=== PATIENT | male | born 1950 | race Caucasian/White ===

== ENCOUNTER 2019-07-07 10:39 | Outpatient (CLI) | payer MEDICARE, OTHER, SELFPAY ==
[2019-07-07 11:39] LABS: Basophils # 0.1 10^3/uL (0.0-0.1); Basophils % 1.1 %; Eosinophils # 0.1 10^3/uL (0.0-0.8); Eosinophils % 1.3 %; Hematocrit 42.5 % (42.0-52.0); Lymphocytes % 18.2 %; Mean Corpuscular HGB Conc 32.9 g/dL (30.0-36.0); Mean Corpuscular Hemoglobin 30.1 pg (28.0-34.0); Mean Corpuscular Volume 91.4 fL (80-94); Mean Platelet Volume 10.9 fL (7.4-10.4); Monocytes # 0.5 10^3/uL (0.2-0.9); Monocytes % 10.1 %; Neutrophils # 3.7 10^3/uL (1.8-7.7); Neutrophils % 68.9 %; Nucleated Red Blood Cells % 0 %; Platelet Count 206 10^3/cmm (130-400); Red Blood Count 4.65 10^6/uL (4.1-5.3); Red Cell Distribution Width 13.3 % (12.1-15.1); White Blood Count 5.3 10^3/uL (4.0-10.0)
[2019-07-07 12:01] LABS: Alanine Aminotransferase 19 U/L (0-41); Albumin Level 4.4 g/dL (3.5-5.2); Alkaline Phosphatase 74 IU/L (40-130); Anion Gap 12.8 (5-19); Aspartate Amino Transferase 22 U/L (0-40); Blood Urea Nitrogen 15 mg/dL (8-23); Calcium 9.9 mg/dL (8.5-10.5); Carbon Dioxide 30 mmol/L (22-29); Chloride 101 mmol/L (98-107); Globulin 2.6 g/dL (1.3-4.6); Glucose 127 mg/dL (74-106); Potassium 3.8 mmol/L (3.5-5.1); Sodium 140 mmol/L (136-145); Total Bilirubin 0.3 mg/dL (0.15-1.2)
--- NOTE | 2019-07-07 21:33 | ONC FU_ITS ---
Dr. Valdez Patient Follow-Up Note Patient: Navi Cabral Unit #: [id number]: 1950 Dicatated By: Juancarlos Valdez M.D.Date of Visit:Jul 07, 2019 Onc Med Follow-up/Prog Note Chief Complaint: Breast cancer. History of Present Illness: This is a 69 year-old man with grade 2 infiltrating ductal carcinoma of the left breast, stage IIB (pT2, pN1a, M0), ER/WI positive and HER-2/teo nonamplified. He had presented with a one-month history of palpable left breast nodule. His mammogram on 11/04/2014 revealed a 2 cm lobulated mass posterior to the nipple with nipple retraction, corresponding to 1.8 cm mass on ultrasound, suspicious for nipple involvement. The examination revealed two small left axillary lymph nodes. On 11/12/2014 ultrasound guided biopsy of the left breast mass and axillary lymph node were involved with invasive moderately differentiated ductal carcinoma, grade 2/3. Prognostic profile showed ER 95%, WI 95%, and HER-2/teo nonamplified with FISH ratio 1.2, 3.7 HER-2 copies/cell. IHC not reported. He was first seen by Dr. Prince on 11/16/2014. Staging CT of the chest, abdomen, and pelvis was negative for definitive metastatic disease. On 11/19/2014 he underwent a left simple mastectomy and axillary lymph node dissection by Dr. Salvador. The surgical pathology showed 2.5 cm infiltrating ductal carcinoma extending to the skin, involving dermis and epidermis, with lymphovascular invasion, grade 2, without DCIS. Margins were negative. There was metastatic involvement in 1/16 lymph nodes. Thus, his disease was stage IIB (pT2, pN1a, M0). Dose dense Adriamycin/cyclophosphamide for 4 cycles was delivered 12/22/2014 - 02/02/2015. His treatment was complicated with neutropenia without infection. He then received 4 cycles of paclitaxel 02/24/2015 ??? 04/20/2015. He was then given prophylactic chest wall radiation, completed on 07/06/2015 to a total dose of 6040 cGy. He began on adjuvant tamoxifen therapy on 06/11/2014. His medical history is otherwise significant for GERD. He is a nonsmoker. INTERIM HISTORY: He was seen for a scheduled followup visit on 07/01/2018. At that point he was doing well clinically with no evidence of recurrence of the breast cancer. He continued his adjuvant hormonal therapy with tamoxifen 20 mg daily. He is seen today for an unplanned visit. We had received a call this morning indicating that he had found a new lump in the left chest area. He had only recently become aware of it. He has been feeling good generally. He had the weight loss on the [employer]ystem diet, which he has been able to maintain. He has normal energy and activity tolerance. He has no fever, night sweats, or hot flashes. He has no shortness of breath, cough, or chest pain. He has no GI or complaints other than nocturia, which is stable. He has no significant joint or bone pain. He still has a little residual neuropathy in his toes. Medications: Aspirin 1 (81 mg) Tablet Oral daily, Multivitamins 1 Tablet Capsule Oral daily, Tamoxifen Citrate 1 (20 mg) Tablet Oral daily Allergies: No Known Allergies. Review of Systems: Constitutional - His energy is good and he has normal activity. His appetite is good, but he has had significant weight loss on a Nutrasystem diet. No fever, chills, hot flashes, or night sweats. ECOG score is 0, ENMT - No sinus congestion/drainage. No mouth sores. No sore throat or difficulty swallowing, Hematologic/Lymphatic - He bruises easily, Breasts - He has become aware of a new lump in his left chest wall, Respiratory - No shortness of breath. No cough. No pleuritic pain or hemoptysis, Cardiovascular - No angina pain. No palpitations, Gastrointestinal - No nausea or vomiting. No heartburn or acid reflux. No diarrhea or constipation. No blood in the stool or black stools, Genitourinary (M) - No dysuria or hematuria. He has nocturia 3-4 times. No urgency or incontinence, Musculoskeletal - No joint or bone pain, Integumentary - No skin complications, Neurologic - No headache or dizziness. He has a little residual neuropathy in his toes, Psychiatric - No anxiety or depression. No insomnia. Vital Signs: Performed on Jul 07, 2019 10:52 Height - 72.00 in Weight - 197.2 lbs (LOW) BSA - 2.12 sq.m BMI - 26.75 Temperature - 97.2 F (LOW) Pulse - 80 /min Respiration - 158 /min (HIGH) BP - 139/92 mm(hg) O2 Sat - 96 % Pain - 0 Physical Examination: Constitutional - He looks good generally, Eyes - Sclerae nonicteric. Conjunctivae clear, ENMT - No lesions noted in the oral cavity, Hematologic/Lymphatic - No cervical or clavicular adenopathy, Respiratory - Lungs are clear with good air movement bilaterally, Cardiovascular - Heart rhythm is regular. There is no murmur, gallop, or rub noted, Breasts - There is some nodularity in the upper outer quadrant of the right breast. There is no suspicious mass noted. There is a subcutaneous nodule in the upper outer left chest wall. It has ill-defined borders, but it appears to measure about 1 cm. There is no axillary adenopathy noted, Abdomen - Soft. Liver and spleen are not enlarged. There is no abdominal mass or ascites noted and there is no inguinal adenopathy, Extremities - No edema, Neurologic - No focal neurologic deficits noted. Lab/Imaging: Test performed on Jul 07, 2019 11:10 Sodium 140 mmol/L Potassium 3.8 mmol/L Chloride 101 mmol/L CO2 30 mmol/L Anion Gap 12.8 BUN 15 mg/dL Creatinine 1.2 mg/dL Cr Clearance (Est) 73.0300 mL/min Glucose 127 mg/dL Calcium 9.9 mg/dL Protein, Total 7.0 g/dL Albumin 4.4 g/dL Globulin 2.6 g/dL Bilirubin, Total 0.3 mg/dL ALT (SGPT) 19 U/L AST (SGOT) 22 U/L Alkaline Phosphatase 74 IU/L WBC 5.3 10 3/uL RBC 4.65 10 6/uL HGB 14.0 g/dL HCT 42.5 % MCV 91.4 fL MCH 30.1 pg MCHC 32.9 g/dL RDW 13.3 % Platelet Count 206 10 3/cmm MPV 10.9 fL Neutrophils 3.7 10 3/uL Lymphocytes 1.0 10 3/uL Monocytes 0.5 10 3/uL Eosinophils 0.1 10 3/uL Basophils 0.1 10 3/uL Neutrophil % 68.9 % Lymphocyte % 18.2 % Monocyte % 10.1 % Eosinophil % 1.3 % Basophils % 1.1 % Impression: 1. Patient with grade 2 infiltrating ductal carcinoma of the left breast, stage IIB (pT2, pN1a, M0), ER/WI positive and HER-2/teo nonamplified. 2. He underwent left simple mastectomy and axillary node dissection on 11/19/2014. 3. He was given adjuvant chemotherapy with 4 cycles of dose dense Adriamycin/cyclophosphamide followed by 4 cycles of paclitaxel, completed on 04/20/2015. 4. He was then given prophylactic chest wall radiation, completed on 07/06/2015 to a total dose of 6040 cGy. 5. Adjuvant hormonal therapy with tamoxifen began in June 2014. The recommended duration of treatment was 10 years. As of his follow-up visit on 03/31/2019 he appear to be doing well clinically with no evidence of recurrence of the breast cancer. He comes in now with a recently discovered subcutaneous nodule in the upper outer left chest wall. The appearance is highly suspicious for recurrence of his breast cancer. Plan: He will contact Dr. Ac to arrange for excisional biopsy of the chest wall lesion. If this is confirmed to be malignant, he will need to be scheduled for restaging PET/CT. I also will want to have his tumor evaluated with a next generation sequencing study prior to recommending any further treatment. Signed By: Juancarlos Valdez M.D. <<Signature on File>>
== END 2019-07-07 10:40 | disposition home or self-care (01) ==
LOC: ONCMED 10:42
PROVIDERS: Family Provider Internal Medicine; PCP Internal Medicine; Visit Provider Internal Medicine Medical Oncology
DX: C50.022 Malignant neoplasm of nipple and areola, left male breast (principal); C77.3 Secondary and unspecified malignant neoplasm of axilla and upper limb lymph nodes; K21.9 Gastro-esophageal reflux disease without esophagitis; G62.9 Polyneuropathy, unspecified; L98.9 Disorder of the skin and subcutaneous tissue, unspecified; Z17.0 Estrogen receptor positive status [ER+]; Z79.82 Long term (current) use of aspirin; Z79.810 Long term (current) use of selective estrogen receptor modulators (SERMs); Z92.3 Personal history of irradiation; Z92.21 Personal history of antineoplastic chemotherapy; Z90.12 Acquired absence of left breast and nipple
CPT/HCPCS: 36415; 80053; 85025; 99214

== ENCOUNTER 2020-03-31 07:47 | Outpatient (CLI) | payer MEDICARE, OTHER, SELFPAY ==
--- NOTE | 2020-03-31 08:09 | MM_ITS ---
WS: [id number] DIAGNOSTIC RIGHT DIGITAL MAMMOGRAM WITH CAD HISTORY: HX OF BREAST CA COMPARISON: 03/26/2019 and 03/25/2018 Technique: CC, MLO and ML views. Breast composition: The breasts are almost entirely fatty. No suspicious masses or distortion. Simila r pattern throughout the RIGHT breast tissue. MM/[place] [id number] IMPRESSION: BI-RADS: 1-Negative FOLLOW UP: 1 Year Follow-up
[2020-03-31 08:56] LABS: Basophils # 0.1 10^3/uL (0.0-0.1); Basophils % 1.2 %; Eosinophils # 0.1 10^3/uL (0.0-0.8); Eosinophils % 2.4 %; Hematocrit 43.2 % (42.0-52.0); Hemoglobin 14.1 g/dL (11.7-16.6); Lymphocytes # 0.9 10^3/uL (0.8-4.8); Lymphocytes % 22.7 %; Mean Corpuscular HGB Conc 32.6 g/dL (30.0-36.0); Mean Corpuscular Hemoglobin 30.8 pg (28.0-34.0); Mean Corpuscular Volume 94.3 fL (80-94); Mean Platelet Volume 10.4 fL (7.4-10.4); Monocytes # 0.5 10^3/uL (0.2-0.9); Neutrophils % 60.5 %; Nucleated Red Blood Cells % 0 %; Platelet Count 189 10^3/cmm (130-400); Red Blood Count 4.58 10^6/uL (4.1-5.3); Red Cell Distribution Width 13.2 % (12.1-15.1); White Blood Count 4.1 10^3/uL (4.0-10.0)
[2020-03-31 09:15] LABS: Alanine Aminotransferase 18 U/L (0-41); Albumin Level 4.2 g/dL (3.5-5.2); Alkaline Phosphatase 66 IU/L (40-130); Anion Gap 11.5 (5-19); Aspartate Amino Transferase 21 U/L (0-40); Blood Urea Nitrogen 16 mg/dL (8-23); Calcium 9.1 mg/dL (8.5-10.5); Carbon Dioxide 28 mmol/L (22-29); Chloride 105 mmol/L (98-107); Globulin 2.3 g/dL (1.3-4.6); Glucose 101 mg/dL (65-115); Osmolality Calculated 291 mOsm/kg (285-295); Potassium 4.5 mmol/L (3.5-5.1); Sodium 140 mmol/L (136-145); Total Bilirubin 0.4 mg/dL (0.15-1.2); Total Protein 6.5 g/dL (6.6-8.7)
== END 2020-03-31 07:48 | disposition home or self-care (01) ==
LOC: RADSHAW 07:51 → ONCMED 08:38
PROVIDERS: PCP Internal Medicine; Visit Provider Internal Medicine Medical Oncology
DX: Z85.3 Personal history of malignant neoplasm of breast (principal); E65 Localized adiposity
CPT/HCPCS: 36415; 77065; 80053; 85025

== ENCOUNTER 2020-04-28 06:14 | Outpatient (CLI) | payer MEDICARE, OTHER, SELFPAY ==
--- NOTE | 2020-05-02 10:39 | ONC FU_ITS ---
Dr. Valdez Patient Follow-Up Note Patient: Navi Cabral Unit #: [id number]: 1950 Dicatated By: Juancarlos Valdez M.D.Date of Visit:Apr 28, 2020 Onc Med Follow-up/Prog Note Chief Complaint: Breast cancer. History of Present Illness: This is a 70 year-old man with grade 2 infiltrating ductal carcinoma of the left breast, stage IIB (pT2, pN1a, M0), ER/HI positive and HER-2/teo nonamplified. He had presented with a one-month history of palpable left breast nodule. His mammogram on 11/04/2014 revealed a 2 cm lobulated mass posterior to the nipple with nipple retraction, corresponding to 1.8 cm mass on ultrasound, suspicious for nipple involvement. The examination revealed two small left axillary lymph nodes. On 11/12/2014 ultrasound guided biopsy of the left breast mass and axillary lymph node were involved with invasive moderately differentiated ductal carcinoma, grade 2/3. Prognostic profile showed ER 95%, [place] 95%, and HER-2/teo nonamplified with FISH ratio 1.2, 3.7 HER-2 copies/cell. IHC not reported. He was first seen by Dr. Prince on 11/16/2014. Staging CT of the chest, abdomen, and pelvis was negative for definitive metastatic disease. On 11/19/2014 he underwent a left simple mastectomy and axillary lymph node dissection by Dr. Salvador. The surgical pathology showed 2.5 cm infiltrating ductal carcinoma extending to the skin, involving dermis and epidermis, with lymphovascular invasion, grade 2, without DCIS. Margins were negative. There was metastatic involvement in 1/16 lymph nodes. Thus, his disease was stage IIB (pT2, pN1a, M0). Dose dense Adriamycin/cyclophosphamide for 4 cycles was delivered 12/22/2014 - 02/02/2015. His treatment was complicated with neutropenia without infection. He then received 4 cycles of paclitaxel 02/24/2015 ??? 04/20/2015. He was then given prophylactic chest wall radiation, completed on 07/06/2015 to a total dose of 6040 cGy. He began on adjuvant tamoxifen therapy on 06/11/2014. His medical history is otherwise significant for GERD. He is a nonsmoker. INTERIM HISTORY: At his follow-up visit in June 2019 he had developed a new subcutaneous nodule in the upper outer left chest wall. Clinically was very suspicious for recurrence. The lesion subsequently was excised by Dr. Ac, and it was determined to be benign and apparently related to his radiation. He continued his adjuvant tamoxifen. He is seen for a scheduled visit. He has been feeling good generally. He has good energy and activity tolerance. His ECOG score is 0. Appetite also is good. He has had some intentional weight loss. He does not have fever, night sweats, or hot flashes. He does complain that he has been getting fairly frequent muscle cramps in his legs and hands. He has occasional pain in the low back and hips with activity. He has no other joint or bone pain and he really has no other significant complaints at this time. Medications: Aspirin 1 (81 mg) Tablet Oral daily, Multivitamins 1 Tablet Capsule Oral daily, Tamoxifen Citrate 1 (20 mg) Tablet Oral daily Allergies: No Known Allergies. Review of Systems: Constitutional - He has good energy and activity tolerance. Appetite is also good. He has had intentional weight loss. He does not have fever, night sweats, or hot flashes. ECOG score 0, ENMT - No sinus congestion/drainage. No mouth sores. No sore throat or difficulty swallowing, Hematologic/Lymphatic - No abnormal bruising or bleeding, Respiratory - No shortness of breath. No cough. No pleuritic pain or hemoptysis, Cardiovascular - No angina pain. No palpitations, Gastrointestinal - No nausea or vomiting. No heartburn or acid reflux. No diarrhea or constipation. No blood in the stool or black stools, Genitourinary (M) - No dysuria or hematuria. No urinary frequency. He does have some nocturia. No urgency or incontinence, Musculoskeletal - He has occasional pain in the low back and hips with activity. He has no other joint or bone pain. He has been getting muscle cramps in his legs and hands, Integumentary - No skin rash, Neurologic - No headache or dizziness. No numbness or tingling. No other focal neurologic symptoms, Psychiatric - No anxiety or depression. No insomnia. Vital Signs: Performed on Apr 28, 2020 10:27 Height - 72.00 in Weight - 203.4 lbs (HIGH) BSA - 2.15 sq.m BMI - 27.59 Temperature - 97.9 F (LOW) Pulse - 62 /min Respiration - 18 /min BP - 159/95 mm(hg) (HIGH) O2 Sat - 97 % Pain - 0 Physical Examination: Constitutional - He looks good generally, Eyes - Sclerae nonicteric. Conjunctivae clear, ENMT - No lesions noted in the oral cavity, Hematologic/Lymphatic - No cervical or clavicular adenopathy, Respiratory - Lungs are clear with good air movement bilaterally, Cardiovascular - Heart rhythm is regular. There is no murmur, gallop, or rub noted, Breasts - The right para shows a mass. There are no lesions noted in the left chest wall. There is no axillary adenopathy noted, Abdomen - Soft. Liver and spleen are not enlarged. There is no abdominal mass or ascites noted and there is no inguinal adenopathy, Extremities - No edema, Neurologic - No focal neurologic deficits noted. Lab/Imaging: Test performed on Mar 31, 2020 08:45 Sodium 140 mmol/L Potassium 4.5 mmol/L Chloride 105 mmol/L CO2 28 mmol/L Anion Gap 11.5 BUN 16 mg/dL Creatinine 1.0 mg/dL Cr Clearance (Est) 86.3700 mL/min Glucose 101 mg/dL Osmolality - Calculated 291 mOsm/kg Calcium 9.1 mg/dL Protein, Total 6.5 g/dL Albumin 4.2 g/dL Globulin 2.3 g/dL Bilirubin, Total 0.4 mg/dL ALT (SGPT) 18 U/L AST (SGOT) 21 U/L Alkaline Phosphatase 66 IU/L WBC 4.1 10 3/uL RBC 4.58 10 6/uL HGB 14.1 g/dL HCT 43.2 % MCV 94.3 fL MCH 30.8 pg MCHC 32.6 g/dL RDW 13.2 % Platelet Count 189 10 3/cmm MPV 10.4 fL Neutrophils 2.50 10 3/uL Lymphocytes 0.9 10 3/uL Monocytes 0.5 10 3/uL Eosinophils 0.1 10 3/uL Basophils 0.1 10 3/uL Neutrophil % 60.5 % Lymphocyte % 22.7 % Monocyte % 13.0 % Eosinophil % 2.4 % Basophils % 1.2 % NRBC % 0 % Impression: 1. Patient with grade 2 infiltrating ductal carcinoma of the left breast, stage IIB (pT2, pN1a, M0), ER/HI positive and HER-2/teo nonamplified. 2. He underwent left simple mastectomy and axillary node dissection on 11/19/2014. 3. He was given adjuvant chemotherapy with 4 cycles of dose dense Adriamycin/cyclophosphamide followed by 4 cycles of paclitaxel, completed on 04/20/2015. 4. He was then given prophylactic chest wall radiation, completed on 07/06/2015 to a total dose of 6040 cGy. 5. Adjuvant hormonal therapy with tamoxifen began in June 2014. The recommended duration of treatment was 10 years. In June 2019 he presented with a new subcutaneous nodule in the upper outer left chest wall. The appearance was highly suspicious for recurrence of his breast cancer. He was referred to Dr. Ac for excision and the lesion did display designer outside to be benign, and apparently radiation-related. He has since then continued his adjuvant tamoxifen, which he tolerates with acceptable toxicity. Thus far there has been no evidence of recurrence of the breast cancer. Plan: He continues adjuvant hormonal therapy with tamoxifen 20 mg daily. I will see him again in 1 year. Signed By: Juancarlos Valdez M.D. <<Signature on File>>
== END 2020-04-28 06:15 | disposition home or self-care (01) ==
LOC: ONCMED 06:16
PROVIDERS: PCP Internal Medicine; Visit Provider Internal Medicine Medical Oncology
DX: C50.022 Malignant neoplasm of nipple and areola, left male breast (principal); Z17.0 Estrogen receptor positive status [ER+]; Z90.12 Acquired absence of left breast and nipple; Z92.21 Personal history of antineoplastic chemotherapy; Z92.3 Personal history of irradiation; Z79.810 Long term (current) use of selective estrogen receptor modulators (SERMs)
CPT/HCPCS: 99214

== ENCOUNTER 2020-11-12 14:10 | Outpatient (CLI) | payer MEDICARE, OTHER, SELFPAY ==
--- NOTE | 2020-11-12 14:44 | MR_ITS ---
WS: [id number] MRI LEFT SHOULDER HISTORY: INTERNAL DERANGEMENT COMPARISON: 11/04/2020 TECHNIQUE: Multiplanar sequences of the shoulder joint are submitted. Moderate degenerative changes at the AC joint. Soft tissue and hypertrophic bone formation. Osteophyt e from the distal clavicle extends 4 mm towards the supraspinatus muscle. There is mild encroachment upon the supraspinatus muscle. Increased T2 signal along the AC ligament. There is an additional oste ophyte measuring 7 x 3 mm along the inferior undersurface of the acromion causing mild encroachment u bonifacio the supraspinatus tendon. No os acromion. Biceps tendon in normal position. Calcific deposits within the distal rotator cuff are identified. The largest deposit extends over a w idth of 8 mm between the supraspinatus and subscapularis tendons. No definite rotator cuff tear is id entified. There is some very mild increased signal in the distal supraspinatus from tendinopathy. Sma ll amount of fluid in the subacromial and subdeltoid bursa. There is a small amount of marrow edema i nvolving the greater tuberosity. No labral abnormality. Cortical irregularity involving the posterior inferior glenoid. MR/MR shoulder LT wo con* [id number] IMPRESSION: 1. 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 2. Osteophyte along the inferior distal surface of the acromion measures 7.3 m m encroaching upon the supraspinatus tendon. 3. Calcific tendinitis. Largest calcific deposit between the distal supraspina tus and subscapularis tendons measures 8 mm. 4. Cortical irregularity and loss of cartilage involving the posterior inferio r glenoid.
== END 2020-11-12 14:11 | disposition home or self-care (01) ==
LOC: RADWPI 14:22
PROVIDERS: PCP Internal Medicine; Visit Provider Physician Assistant
DX: M24.9 Joint derangement, unspecified (principal); M13.812 Other specified arthritis, left shoulder; M25.712 Osteophyte, left shoulder; M65.28 Calcific tendinitis, other site
CPT/HCPCS: 73221

== ENCOUNTER 2021-04-12 13:58 | Outpatient (CLI) | payer MEDICARE, OTHER, SELFPAY ==
--- NOTE | 2021-04-12 14:05 | MM_ITS ---
WS: [id number] RIGHT DIGITAL MAMMOGRAPHY WITH CAD CLINICAL INFORMATION: HX OF BREAST CA COMPARISON: March 31, 2020 TECHNIQUE: 3 views of the right breast were obtained. FINDINGS: Scattered fibroglandular densities of the right breast. No suspicious focal mass, asymmetry, calcifications, or architectural distortion. No evidence of katya gnancy. MM/[place] [id number] IMPRESSION: BI-RADS: 1-Negative FOLLOW UP: 1 Year Follow-up Recommend return to annual diagnostic mammography.
== END 2021-04-12 13:59 | disposition home or self-care (01) ==
LOC: RADSHAW 14:00
PROVIDERS: PCP Internal Medicine; Visit Provider Internal Medicine Medical Oncology
DX: Z85.3 Personal history of malignant neoplasm of breast (principal)
CPT/HCPCS: 77065

== ENCOUNTER 2021-04-27 10:49 | Outpatient (CLI) | payer MEDICARE, OTHER, SELFPAY ==
[2021-04-27 11:33] LABS: Basophils # 0.1 10^3/uL (0.0-0.1); Basophils % 1.2 %; Eosinophils # 0.2 10^3/uL (0.0-0.8); Hematocrit 40.7 % (42.0-52.0); Hemoglobin 13.5 g/dL (11.7-16.6); Lymphocytes # 1.4 10^3/uL (0.8-4.8); Lymphocytes % 24.7 %; Mean Corpuscular HGB Conc 33.2 g/dL (30.0-36.0); Mean Corpuscular Hemoglobin 31.2 pg (28.0-34.0); Mean Platelet Volume 10.9 fL (7.4-10.4); Monocytes # 0.7 10^3/uL (0.2-0.9); Monocytes % 12.5 %; Neutrophils # 3.35 10^3/uL (1.8-7.7); Neutrophils % 58.3 %; Nucleated Red Blood Cells % 0 %; Platelet Count 198 10^3/cmm (130-400); Red Blood Count 4.33 10^6/uL (4.1-5.3); Red Cell Distribution Width 13.1 % (12.1-15.1); White Blood Count 5.8 10^3/uL (4.0-10.0)
[2021-04-27 11:49] LABS: Alanine Aminotransferase 20 U/L (0-41); Alkaline Phosphatase 67 IU/L (40-130); Aspartate Amino Transferase 24 U/L (0-40); Blood Urea Nitrogen 17 mg/dL (8-23); Calcium 8.5 mg/dL (8.5-10.5); Carbon Dioxide 27 mmol/L (22-29); Chloride 101 mmol/L (98-107); Globulin 2.5 g/dL (1.3-4.6); Glucose 94 mg/dL (65-115); Osmolality Calculated 285 mOsm/kg (285-295); Sodium 137 mmol/L (136-145); Total Bilirubin 0.3 mg/dL (0.15-1.2); Total Protein 6.5 g/dL (6.6-8.7)
--- NOTE | 2021-04-30 14:47 | ONC FU_ITS ---
Dr. Valdez Patient Follow-Up Note Patient: Navi Cabral Unit #: [id number]: 1950 Dicatated By: Juancarlos Valdez M.D.Date of Visit:Apr 27, 2021 Onc Med Follow-up/Prog Note Chief Complaint: Breast cancer. History of Present Illness: This is a 71 year-old man with grade 2 infiltrating ductal carcinoma of the left breast, stage IIB (pT2, pN1a, M0), ER/IL positive and HER-2/teo nonamplified. He had presented with a one-month history of palpable left breast nodule. His mammogram on 11/04/2014 revealed a 2 cm lobulated mass posterior to the nipple with nipple retraction, corresponding to 1.8 cm mass on ultrasound, suspicious for nipple involvement. The examination revealed two small left axillary lymph nodes. On 11/12/2014 ultrasound guided biopsy of the left breast mass and axillary lymph node were involved with invasive moderately differentiated ductal carcinoma, grade 2/3. Prognostic profile showed ER 95%, IL 95%, and HER-2/teo nonamplified with FISH ratio 1.2, 3.7 HER-2 copies/cell. IHC not reported. He was first seen by Dr. Prince on 11/16/2014. Staging CT of the chest, abdomen, and pelvis was negative for definitive metastatic disease. On 11/19/2014 he underwent a left simple mastectomy and axillary lymph node dissection by Dr. Salvador. The surgical pathology showed 2.5 cm infiltrating ductal carcinoma extending to the skin, involving dermis and epidermis, with lymphovascular invasion, grade 2, without DCIS. Margins were negative. There was metastatic involvement in 1/16 lymph nodes. Thus, his disease was stage IIB (pT2, pN1a, M0). Dose dense Adriamycin/cyclophosphamide for 4 cycles was delivered 12/22/2014 - 02/02/2015. His treatment was complicated with neutropenia without infection. He then received 4 cycles of paclitaxel 02/24/2015 ??? 04/20/2015. He was then given prophylactic chest wall radiation, completed on 07/06/2015 to a total dose of 6040 cGy. He began on adjuvant tamoxifen therapy on 06/11/2014. At his follow-up visit in June 2019 he had developed a new subcutaneous nodule in the upper outer left chest wall. Clinically it was very suspicious for recurrence. The lesion subsequently was excised by Dr. Ac, and it was determined to be benign and apparently related to his radiation. He continued his adjuvant tamoxifen. His medical history is otherwise significant for GERD. He is a nonsmoker. INTERIM HISTORY: He is seen for a scheduled visit. He has been feeling good generally. Recently he has been having some pain in the neck/left shoulder area. He also reports having leg cramps pretty frequently, attributable to the tamoxifen. He otherwise tolerates it well. He has good energy and activity tolerance. ECOG score 0. Appetite also is good. He has no fever, night sweats, or hot flashes. He has no shortness of breath, cough, or chest pain. He has no GI/ complaints other than some mild acid reflux symptoms. He has no other joint or bone pain. He does not complain of headache or dizziness. He does have some residual neuropathy in his feet. Medications: amLODIPine Besylate 1 Tablet (of 10 mg) Oral daily, Aspirin 1 (81 mg) Tablet Oral daily, Multivitamins 1 Tablet Capsule Oral daily, Tamoxifen Citrate 1 (20 mg) Tablet Oral daily Allergies: No Known Allergies. Vital Signs: Performed on Apr 27, 2021 12:52 Height - 72.00 in Weight - 205.4 lbs (HIGH) BSA - 2.15 sq.m BMI - 27.86 Temperature - 97 F (LOW) Pulse - 65 /min Respiration - 18 /min BP - 133/77 mm(hg) O2 Sat - 97 % Pain - 0 Fatigue - 0 Physical Examination: Constitutional - He looks good generally, Eyes - Sclerae nonicteric. Conjunctivae clear, ENMT - No lesions noted in the oral cavity, Hematologic/Lymphatic - No cervical or clavicular adenopathy, Respiratory - Lungs are clear with good air movement bilaterally, Cardiovascular - Heart rhythm is regular. There is no murmur, gallop, or rub noted, Breasts - The right breast shows no mass. There are no lesions noted in the left chest wall. There is no axillary adenopathy noted, Abdomen - Soft. Liver and spleen are not enlarged. There is no abdominal mass or ascites noted and there is no inguinal adenopathy, Extremities - No edema, Neurologic - No focal neurologic deficits noted. Lab/Imaging: Test performed on Apr 27, 2021 11:03 Sodium 137 mmol/L Potassium 4.0 mmol/L Chloride 101 mmol/L CO2 27 mmol/L Anion Gap 13.0 BUN 17 mg/dL Creatinine 1.1 mg/dL Cr Clearance (Est) 77.3600 mL/min Glucose 94 mg/dL Osmolality - Calculated 285 mOsm/kg Calcium 8.5 mg/dL Protein, Total 6.5 g/dL Albumin 4.0 g/dL Globulin 2.5 g/dL Bilirubin, Total 0.3 mg/dL ALT (SGPT) 20 U/L AST (SGOT) 24 U/L Alkaline Phosphatase 67 IU/L WBC 5.8 10 3/uL RBC 4.33 10 6/uL HGB 13.5 g/dL HCT 40.7 % MCV 94.0 fl MCH 31.2 pg MCHC 33.2 g/dL RDW 13.1 % Platelet Count 198 10 3/cmm MPV 10.9 fL Neutrophils 3.35 10 3/uL Lymphocytes 1.4 10 3/uL Monocytes 0.7 10 3/uL Eosinophils 0.2 10 3/uL Basophils 0.1 10 3/uL Neutrophil % 58.3 % Lymphocyte % 24.7 % Monocyte % 12.5 % Eosinophil % 3.0 % Basophils % 1.2 % NRBC % 0 % Problem List: 1. Grade 2 infiltrating ductal carcinoma of the left breast, stage IIB (pT2, pN1a, M0), ER/IL positive and HER-2/teo nonamplified. 2. GERD. Problems Addressed with this Encounter and Plan: Patient with grade 2 infiltrating ductal carcinoma of the left breast, stage IIB (pT2, pN1a, M0), ER/IL positive and HER-2/teo nonamplified. He underwent left simple mastectomy and axillary node dissection on 11/19/2014. He was given adjuvant chemotherapy with 4 cycles of dose dense Adriamycin/cyclophosphamide followed by 4 cycles of paclitaxel, completed on 04/20/2015. He was then given prophylactic chest wall radiation, completed on 07/06/2015 to a total dose of 6040 cGy. Adjuvant hormonal therapy with tamoxifen began in June 2014. The recommended duration of treatment was 10 years. In June 2019 he presented with a new subcutaneous nodule in the upper outer left chest wall. The appearance was highly suspicious for recurrence of his breast cancer. He was referred to Dr. Ac for excision and the lesion did turnstile collector to be benign, and apparently radiation-related. He then continued his adjuvant tamoxifen. He has since then been doing well clinically. He has mild residual neuropathy, and he has been having leg cramps, which he attributes to tamoxifen. He otherwise tolerates it well. Thus far there has been no evidence of recurrence of the breast cancer. He continues tamoxifen 20 mg daily. He will be scheduled for a followup visit in one year. Signed By: Juancarlos Valdez M.D. <<Signature on File>>
== END 2021-04-27 10:50 | disposition home or self-care (01) ==
LOC: ONCMED 10:49
PROVIDERS: PCP Internal Medicine; Visit Provider Internal Medicine Medical Oncology
DX: C50.822 Malignant neoplasm of overlapping sites of left male breast (principal); Z17.0 Estrogen receptor positive status [ER+]; Z90.12 Acquired absence of left breast and nipple; Z79.811 Long term (current) use of aromatase inhibitors; Z92.21 Personal history of antineoplastic chemotherapy; Z92.3 Personal history of irradiation
CPT/HCPCS: 36415; 80053; 85025; 99214

== ENCOUNTER 2021-09-22 07:20 | Outpatient (RCR) | payer MEDICARE, OTHER, SELFPAY | END 2021-10-08 23:59 | disposition home or self-care (01) | LOC: SPT 07:20 | PROVIDERS: PCP Internal Medicine; Referring Provider Internal Medicine; Visit Provider Internal Medicine | DX: M54.2 Cervicalgia (principal) | CPT/HCPCS: 97110; 97140; 97161 ==

== ENCOUNTER 2021-10-09 06:00 | Outpatient (RCR) | payer MEDICARE, OTHER, SELFPAY | END 2021-10-28 10:33 | disposition home or self-care (01) | LOC: SPT 06:00 | PROVIDERS: PCP Internal Medicine; Referring Provider Internal Medicine; Visit Provider Internal Medicine | DX: M54.2 Cervicalgia (principal) | CPT/HCPCS: 97110; 97140 ==

== ENCOUNTER 2022-04-25 14:40 | Outpatient (CLI) | payer MEDICARE, OTHER, SELFPAY ==
--- NOTE | 2022-04-25 14:46 | MM_ITS ---
WS: [id number] RIGHT 3D TOMOSYNTHESIS DIGITAL MAMMOGRAPHY WITH CAD CLINICAL INFORMATION: history of breast cancer HISTORY: History of LEFT mastectomy. COMPARISON: April 12, 2021 TECHNIQUE: 3 views of the right breast were obtained. FINDINGS: Scattered fibroglandular densities of the right breast. No suspicious focal mass, asymmetry, calcifications, or architectural distortion. No evidence of katya gnancy. MM/[place] [id number] IMPRESSION: BI-RADS: 1-Negative FOLLOW UP: 1 Year Follow-up Recommend return to annual diagnostic mammography.
== END 2022-04-25 14:41 | disposition home or self-care (01) ==
PROVIDERS: PCP Internal Medicine; Visit Provider Internal Medicine Medical Oncology
DX: Z85.3 Personal history of malignant neoplasm of breast (principal); Z90.12 Acquired absence of left breast and nipple
CPT/HCPCS: 77061; G0279

== ENCOUNTER 2022-08-08 12:12 | Oncology outpatient (recurring) (ONCR) | payer MEDICARE, OTHER, SELFPAY ==
[2022-08-08 12:28] LABS: Basophils # 0.1 10^3/uL (0.0-0.1); Basophils % 1.7 %; Eosinophils # 0.1 10^3/uL (0.0-0.8); Eosinophils % 1.3 %; Hematocrit 41.2 % (42.0-52.0); Hemoglobin 13.6 g/dL (11.7-16.6); Lymphocytes # 1.4 10^3/uL (0.8-4.8); Lymphocytes % 27.1 %; Mean Corpuscular Hemoglobin 30.5 pg (28.0-34.0); Mean Corpuscular Volume 92.4 fl (80-94); Mean Platelet Volume 10.4 fL (7.4-10.4); Monocytes # 0.6 10^3/uL (0.2-0.9); Monocytes % 12.1 %; Neutrophils # 2.99 10^3/uL (1.8-7.7); Neutrophils % 57.4 %; Nucleated Red Blood Cells % 0 %; Platelet Count 203 10^3/cmm (130-400); Red Blood Count 4.46 10^6/uL (4.1-5.3); Red Cell Distribution Width 13.5 % (12.1-15.1); White Blood Count 5.2 10^3/uL (4.0-10.0)
[2022-08-08 12:44] LABS: Alanine Aminotransferase 11 U/L (0-41); Albumin Level 4.3 g/dL (3.5-5.2); Alkaline Phosphatase 74 U/L (40-130); Anion Gap 15.4 (5-19); Aspartate Amino Transferase 23 U/L (0-40); Blood Urea Nitrogen 18 mg/dL (8-23); Calcium 8.6 mg/dL (8.5-10.5); Carbon Dioxide 26 mmol/L (22-29); Chloride 101 mmol/L (98-107); Globulin 2.2 g/dL (1.3-4.6); Glucose 107 mg/dL (65-115); Osmolality Calculated 288 mOsm/kg (285-295); Potassium 4.4 mmol/L (3.5-5.1); Sodium 138 mmol/L (136-145); Total Bilirubin 0.2 mg/dL (0.15-1.2); Total Protein 6.5 g/dL (6.6-8.7)
== END 2022-08-08 23:59 | disposition home or self-care (01) ==
PROVIDERS: PCP Internal Medicine; Visit Provider Internal Medicine Medical Oncology
DX: C50.022 Malignant neoplasm of nipple and areola, left male breast (principal); Z17.0 Estrogen receptor positive status [ER+]; Z90.12 Acquired absence of left breast and nipple; Z92.21 Personal history of antineoplastic chemotherapy; Z92.3 Personal history of irradiation; Z79.818 Long term (current) use of other agents affecting estrogen receptors and estrogen levels
CPT/HCPCS: 36415; 80053; 85025; 99214

== ENCOUNTER → 2022-09-19 13:11 | Outpatient (BNVA) | payer MEDICARE, OTHER, SELFPAY | PROVIDERS: PCP Internal Medicine; Visit Provider Surgery | DX: Z12.11 Encounter for screening for malignant neoplasm of colon (principal); Z86.010 Personal history of colon polyps; Z98.890 Other specified postprocedural states | CPT/HCPCS: 99203 ==

== ENCOUNTER 2022-10-12 07:38 | Day surgery (SDC) | payer MEDICARE, OTHER, SELFPAY ==
[2022-10-10 10:56] VITALS: BMI 29.9
[2022-10-12 07:59] VITALS: BP 141/86; PULSE 86; RESP 16; TEMP 36.1; O2SAT 95
[2022-10-12] MEDS: sodium chloride 0.9% 1,000 ML 30 ML IV (08:07)
--- NOTE | 2022-10-12 08:16 | ANES.PREANE2 ---
Pre-Anesthetic Assessment Height/Weight: Height 1.8 m Weight 97.522 kg Temp Pulse Resp BP Pulse Ox O2 Del Method 97.0 F L 86 16 141/86 95 Room Air 10/12/22 07:59 10/12/22 07:59 10/12/22 07:59 10/12/22 07:59 10/12/22 07:59 10/12/22 07:59 Operation Date: 10/12/22 09:15 Proposed Procedures p 17095 Colon z86.010(Not Applicable) - David Tovar DO Familial anesthetic complications: PONV Was Beta Alvarez taken within 24 hours: N/A Was Clonidine taken within 24 hours: N/A Last intake: Intake Last Liquid Date 10/11/22 Last Liquid Time 22:00 Last Solid Date 10/10/22 Last Solid Time 17:30 Social No alcohol and No tobacco Exam alert, oriented x 3, clear to auscultation bilaterally and regular rate & rhythm Airway Mallampati: Class II Dentition: full CV/HEM Hypertension GI Gastroesophageal Reflux Disease Anesthetic Plan ASA status: 2 Anesthesia: MAC Risk of > 500 ml blood loss (7ml/kg in children): No Medications/Allergies Home Medications Medication Instructions Recorded Confirmed Last Taken Type amlodipine 10 mg tablet 10 mg PO DAILY 12/01/20 10/10/22 10/11/22 History aspirin 81 mg tablet,delayed 81 mg PO DAILY 12/01/20 10/10/22 10/10/22 History release multivitamin with minerals-folic 1 tab PO DAILY 12/01/20 10/10/22 10/11/22 History acid 0.4 mg tablet (Adult One Daily Multivitamin) tamoxifen 20 mg tablet 20 mg PO DAILY #90 tabs 08/08/22 10/10/22 10/11/22 Rx Allergies Allergy/AdvReac Type Severity Reaction Status Date / Time No Known Allergies Allergy Unverified 10/10/22 10:53 Current Medications Generic Name Dose Route Start Last Admin Trade Name Freq PRN Reason Stop Dose Admin Sodium Chloride 1,000 mls @ 30 mls/hr 10/12/22 08:00 10/12/22 08:07 Sodium Chloride 0.9% IV 10/13/22 07:59 30 mls/hr .Q24H MARCO ANTONIO Administration PFSH Anesthesia Medical History (Updated 09/19/22 @ 14:08 by David Tovar DO) Breast cancer in male Esophageal reflux History of colon polyps Hypertension Surgical History (Updated 09/19/22 @ 14:08 by David Tovar DO) History of mastectomy (11/19/14) Left simple mastectomy with axillary lymph node dissection Hx of colonoscopy with polypectomy [address] Nicole Social History Smoking and tobacco status: never smoked Alcohol intake: current Alcohol intake frequency: holidays/special occasions only Alcohol type: beer Data Anesthesia Cardiac Studies: No Data to Display
--- NOTE | 2022-10-12 09:09 | W.PM.OPSUD ---
Surgery/Procedure H&P Update DATE OF PROCEDURE: October 12, 2022 DATE H&P PERFORMED: 09/19/22 H&P UPDATE INFORMATION: I have reviewed H&P completed within last 30 days, I have examined patient prior to procedure and No changes to prior documentation PLANNED PROCEDURE: Operation Date: 10/12/22 09:15 Proposed Procedures p 80802 Colon z86.010(Not Applicable) - David Tovar DO
[2022-10-12 09:39] VITALS: BP 118/76; PULSE 58; RESP 18; TEMP 36.2; O2SAT 92
[2022-10-12 09:57] VITALS: BP 136/84; PULSE 59; RESP 16; O2SAT 93
--- NOTE | 2022-10-12 13:45 | ANE.PACU2 ---
Inpatient post-anesthesia follow up: Airway intact: Yes Vital signs: Temperature 97.2 F Pulse Rate 59 Respiratory Rate 16 Blood Pressure 136/84 Pulse Oximetry 93 Oxygen Delivery Me thod Room Air Oxygen Flow Rate Fraction of Inspir ed Oxygen Hydration adequate: Yes Nausea and vomiting: No Pain level: 1 Mental status: Baseline
== END 2022-10-12 10:02 | disposition home or self-care (01) ==
PROVIDERS: PCP Internal Medicine; Visit Provider Surgery
PROC: 0DJD8ZZ Inspection of Lower Intestinal Tract, Via Natural or Artificial Opening Endoscopic (ICD-10-PCS; CPT 45378; principal; 2022-10-12 09:15)
DX: Z12.11 Encounter for screening for malignant neoplasm of colon (principal); D12.5 Benign neoplasm of sigmoid colon; K64.8 Other hemorrhoids; I10 Essential (primary) hypertension; K21.9 Gastro-esophageal reflux disease without esophagitis; Z79.82 Long term (current) use of aspirin; Z79.899 Other long term (current) drug therapy; Z86.010 Personal history of colon polyps
CPT/HCPCS: 45385; 88305; J2704; J7030

== ENCOUNTER → 2022-11-28 17:56 | Outpatient (BNVA) | payer MEDICARE, OTHER, SELFPAY | PROVIDERS: PCP Internal Medicine; Visit Provider Surgery | DX: Z09 Encounter for follow-up examination after completed treatment for conditions other than malignant neoplasm (principal) | CPT/HCPCS: 99212 ==

== ENCOUNTER 2023-05-10 07:33 | Outpatient (CLI) | payer MEDICARE, OTHER, SELFPAY ==
--- NOTE | 2023-05-10 08:00 | MM_ITS ---
WS: [id number] RIGHT 3D TOMOSYNTHESIS DIGITAL MAMMOGRAPHY WITH CAD CLINICAL INFORMATION: Yearly surveillance HISTORY: History of LEFT mastectomy. COMPARISON: 2021 TECHNIQUE: 3 views of the right breast were obtained. FINDINGS: Scattered fibroglandular densities subareolar RIGHT breast. No suspicious focal mass, asymmetry, calcifications, or architectural distortion. No evidence of katya gnancy. IMPRESSION: MM/[place] [id number] BI-RADS: 1-Negative FOLLOW UP: 1 Year Follow-up Recommend return to annual diagnostic mammography.
== END 2023-05-10 07:34 | disposition home or self-care (01) ==
LOC: RAD 07:33
PROVIDERS: PCP Internal Medicine; Visit Provider Internal Medicine Medical Oncology
DX: Z90.12 Acquired absence of left breast and nipple (principal); Z85.3 Personal history of malignant neoplasm of breast
CPT/HCPCS: 77061; G0279

== ENCOUNTER 2023-10-14 09:59 | Emergency (ER) | payer MEDICARE, OTHER, SELFPAY ==
[2023-10-14 10:32] VITALS: BP 125/82; PULSE 91; TEMP 36.8; O2SAT 95; BMI 29.2
--- NOTE | 2023-10-14 10:55 | XRR_ITS ---
PROCEDURE INFORMATION: Exam: XR Left Wrist Exam date and time: 10/14/2023 11:11 AM Age: 73 years old Clinical indication: Injury or trauma; Other: Lifting injury; Other: Lateral wrist pain TECHNIQUE: Imaging protocol: Radiologic exam of the left wrist. Views: 3 or more views. COMPARISON: No relevant prior studies available. FINDINGS: Bones/joints: Mild degenerative disease of the STT joint and moderate degenerative of the 1st carpometacarpal joint. 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 Cystic changes of the distal scaphoid pole, degenerative. Soft tissues: Normal. Vasculature: Vascular calcifications. XR/XR wrist LT min 3V* [id number] IMPRESSION: No acute fracture or dislocation.
--- NOTE | 2023-10-14 12:27 | W.ED.EXTPRO ---
HPI - Extremity Problem General: Chief complaint: Extremity Injury, Upper Stated complaint: left wrist pain Time Seen by Provider: 10/14/23 12:23 History of Present Illness: Patient says about 3 weeks ago he was putting a parking brake on his [id number] and felt a pop in his wrist and had great deal of pain. 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 Pain is mostly mid wrist palmar side but radiates into the back and goes up his arm some 2. No deformity. No redness. No swelling. He has been taking ibuprofen and it has not helped. Last night the pain was so bad it made him nauseous. This is what urged him to come to the ER. He had gone to urgent care a while back and had it x-rayed and there was nothing broken. He is neurovascularly intact Review of Systems Narrative: Constitutional symptoms: Negative except as documented in HPI. Skin symptoms: Negative except as documented in HPI. Eye symptoms: Negative except as documented in HPI. ENMT symptoms: Negative except as documented in HPI. Respiratory symptoms: Negative except as documented in HPI. Cardiovascular symptoms: Negative except as documented in HPI. Gastrointestinal symptoms: Negative except as documented in HPI. Genitourinary symptoms: Negative except as documented in HPI. Musculoskeletal symptoms: Negative except as documented in HPI. Neurologic symptoms: Negative except as documented in HPI. Psychiatric symptoms: Negative except as documented in HPI. Endocrine symptoms: Negative except as documented in HPI. PFS ED PFSH: Medical History Breast cancer in male Esophageal reflux History of colon polyps Hypertension Surgical History History of mastectomy (11/19/14) Left simple mastectomy with axillary lymph node dissection Hx of colonoscopy with polypectomy [address] Nicole Social History Smoking and tobacco/nicotine status: never used tobacco/nicotine Alcohol intake: current Alcohol intake frequency: holidays/special occasions only Alcohol type: beer Physical Exam Narrative: EXAM NARRATIVE: General: Alert, no acute distress. Skin: warm and dry Head: Normocephalic Neck: Trachea midline Eye: Extraocular movements are intact. Ears, nose, mouth and throat: Oral mucosa moist Respiratory: Respirations are non-labored Musculoskeletal: Normal ROM, no redness or swelling. Neurovascular intact. Some pain palpation between the radius and ulna distally. Neurological: Alert and oriented to person, place, time, and situation, No focal neurological deficit observed. Psychiatric: Cooperative, appropriate mood & affect. Course Vital Signs: Vital signs: Vital Signs Temperature 98.3 F 10/14/23 10:32 Pulse Rate 91 10/14/23 10:32 Blood Pressure 125/82 10/14/23 10:32 Pulse Oximetry 95 10/14/23 10:32 Oxygen Delivery Me thod Room Air 10/14/23 10:32 MDM - Extremity (Nontraumatic) Medical Decision Making X-ray was ordered to rule out any kind of fractures that might have been occult and showing up now. X-ray of the left wrist: No fractures. No dislocations. This was reviewed and interpreted by myself the emergency room physician. I also reviewed the radiology report. Assessment and plan: Wrist sprain - Discharged home - Discussed plan with patient. Answered any questions. - Evaluation and treatment of this problem were appropriate in the emergency setting. Lab Data Radiology Impressions Wrist X-Ray 10/14/23 10:55 IMPRESSION: No acute fracture or dislocation. All radiology interpretation(s) finalized by discharge Discharge Plan Discharge Patient Disposition: Home Clinical Impression: Sprain and strain of wrist Condition: Stable Prescriptions: New prednisone 20 mg tablet 60 mg PO DAILY Qty: 20 0RF Rx Instructions: 3 tabs (60 mg) x 3 days. 2 tabs (40 mg) x 3 days. 1 tab (20 mg) x 3 days. 1/2 tab (10 mg) x 4 days tramadol 50 mg tablet 50 mg PO Q8H PRN (Reason: pain) Qty: 20 0RF diclofenac sodium 50 mg tablet,delayed release (DR/EC) 50 mg PO Q12H Qty: 20 0RF No Action Adult One Daily Multivitamin 0.4 mg tablet 1 tab PO DAILY aspirin 81 mg tablet,delayed release (DR/EC) 81 mg PO DAILY amlodipine 10 mg tablet 10 mg PO DAILY tamoxifen 20 mg tablet 20 mg PO DAILY Qty: 90 3RF Discharge Orders: Discharge ED (Routine); Ordered 10/14/23 Ordered By: Ayala Zabala Referrals: Alf Thrasher DO [Physician] - 4-7 days (Please call for an appointment on Sunday morning) Juancarlos Arizmendi DO [Primary Care Provider] - (You have been screened and evaluated and felt safe for discharge. Health conditions do change or evolve sometimes and as such it is important that you follow up with your Primary Doctor to be re checked, 3-5 days is a general good time frame for follow up. You are always welcome to return to the ED for re assessment if your symptoms are worsening or you have new concerns) Patient Instructions: Wrist Injury (ED) Coding Level of Care Code ED School Cleaner for Alfonso Holder
[2023-10-14 12:41] VITALS: BP 124/80; PULSE 89; RESP 16; TEMP 36.8; O2SAT 96
== END 2023-10-14 12:42 | disposition home or self-care (01) ==
PROVIDERS: Emergency Provider Emergency Medicine; PCP Internal Medicine
DX: S63.502A Unspecified sprain of left wrist, initial encounter (principal); S66.912A Strain of unspecified muscle, fascia and tendon at wrist and hand level, left hand, initial encounter; Z79.82 Long term (current) use of aspirin; I10 Essential (primary) hypertension; Z85.3 Personal history of malignant neoplasm of breast; X50.9XXA Other and unspecified overexertion or strenuous movements or postures, initial encounter
CPT/HCPCS: 73110; 99283

== ENCOUNTER → 2023-10-16 10:12 | Outpatient (BNVA) | payer MEDICARE, OTHER, SELFPAY | PROVIDERS: PCP Internal Medicine; Visit Provider Student in an Organized Health Care Education/Training Program | DX: S69.92XA Unspecified injury of left wrist, hand and finger(s), initial encounter (principal); X58.XXXA Exposure to other specified factors, initial encounter | CPT/HCPCS: 73110; 99204 ==

== ENCOUNTER 2023-10-23 11:17 | Outpatient (RCR) | payer MEDICARE, OTHER, SELFPAY | END 2023-11-09 23:59 | disposition home or self-care (01) | LOC: SOT 11:17 | PROVIDERS: Visit Provider Student in an Organized Health Care Education/Training Program | DX: S63.502D Unspecified sprain of left wrist, subsequent encounter (principal); X58.XXXD Exposure to other specified factors, subsequent encounter | CPT/HCPCS: 97022; 97110; 97166; 97530 ==

== ENCOUNTER 2023-11-10 06:00 | Outpatient (RCR) | payer MEDICARE, OTHER, SELFPAY | END 2023-12-09 23:59 | disposition home or self-care (01) | LOC: SOT 06:00 | PROVIDERS: Visit Provider Student in an Organized Health Care Education/Training Program | DX: S63.502D Unspecified sprain of left wrist, subsequent encounter (principal); X58.XXXD Exposure to other specified factors, subsequent encounter | CPT/HCPCS: 97022; 97110 ==

== ENCOUNTER → 2023-11-27 08:35 | Outpatient (BNVA) | payer MEDICARE, OTHER, SELFPAY | PROVIDERS: PCP Internal Medicine; Visit Provider Student in an Organized Health Care Education/Training Program | DX: S69.92XA Unspecified injury of left wrist, hand and finger(s), initial encounter (principal); X58.XXXA Exposure to other specified factors, initial encounter | CPT/HCPCS: 99213 ==

== ENCOUNTER 2024-05-22 07:51 | Emergency (ER) | payer MEDICARE, OTHER, SELFPAY ==
--- NOTE | 2024-05-22 08:00 | XR_ITS ---
WS: [id number] Exam: XR lumbar spine 2-3V* [id number] Date/Time of Exam: 05/22/2024 8:00 AM Reason For Exam: Trauma No acute fracture. Disc spaces are preserved. Mild facet DJD. Posterior elements are intact. XR/XR lumbar spine 2-3V* [id number] IMPRESSION: 1. Mild degenerative change. No fracture or malalignment.
[2024-05-22 08:06] VITALS: BP 155/89; PULSE 71; RESP 20; TEMP 36.8; O2SAT 96
--- NOTE | 2024-05-22 08:44 | XR_ITS ---
WS: [id number] Exam: XR ribs LT mn 3V w CXR1V [id number] Date/Time of Exam: 05/22/2024 9:03 AM Reason For Exam: Trauma There is a nondisplaced fracture involving the posterior aspect of the LEFT seventh rib. No other acu te fractures are noted. The LEFT lung is clear and fully inflated. XR/XR ribs LT mn 3V w CXR1V [id number] IMPRESSION: 1. Nondisplaced posterior LEFT seventh rib fracture. No pneumothorax.
--- NOTE | 2024-05-22 08:44 | W.ED.BACK ---
HPI - Back Pain/Injury General: Chief Complaint: Back Pain/Injury Stated Complaint: post fall/back pain Time Seen by Provider: 05/22/24 07:59 History of Present Illness: 74-year-old male presents to the emergency room with complaint of back pain. 3 days ago he fell he was quail hunting slipped and fell landed on a lump of dirt on the ground on his lower ribs posteriorly adjacent to the spine. States he did not strike his head did not lose consciousness did not hurt his neck. He was able to stand and ambulate afterwards following morning where she was seen at a local clinic he gave him some medications advised him it was likely just bruising. He states since then it has continued to give him trouble and is actually more sore and painful today than it was the day after his initial fall. He has difficulty with bending and twisting. No hemoptysis no hematuria. He has not noticed any bruising in the region. Associated symptoms: Deny abdominal pain, chills, dysuria, fever(s) or urinary urgency Related Data Home Medications Medication Instructions Recorded Confirmed aspirin 81 mg tablet,delayed 81 mg PO DAILY 12/01/20 05/22/24 release amlodipine 5 mg tablet 5 mg PO DAILY 05/22/24 05/22/24 tizanidine 4 mg tablet 4 mg PO TID 05/22/24 05/22/24 Previous Rx's Medication Instructions Recorded tamoxifen 20 mg tablet 20 mg PO DAILY #90 tabs 08/08/22 hydrocodone 5 mg-acetaminophen 325 1 tab PO Q6H PRN pain #25 tabs 05/22/24 mg tablet Allergies Allergy/AdvReac Type Severity Reaction Status Date / Time No Known Allergies Allergy Verified 11/27/23 08:58 Review of Systems Const: Denies: fever(s) or chills Card: Denies: chest pain Resp: Denies: dyspnea GI: Denies: abdominal pain : Denies: dysuria, urinary frequency or urinary urgency Musc: Denies: neck pain or back pain Skin/Breast: Denies: rash PFSH ED PFSH: Medical History History of colon polyps Breast cancer in male Esophageal reflux Hypertension Surgical History Hx of colonoscopy with polypectomy [address] Nicole History of mastectomy (11/19/14) Left simple mastectomy with axillary lymph node dissection Social History Smoking and tobacco/nicotine status: never used tobacco/nicotine Alcohol intake: current Alcohol intake frequency: holidays/special occasions only Alcohol type: beer Physical Exam Const: COMMON NORMALS: no acute distress GENERAL APPEARANCE: cooperative and comfortable ORIENTATION/CONSCIOUSNESS: Yes awake, Yes oriented to person, Yes oriented to place and Yes oriented to time HENMT: COMMON NORMALS: normocephalic, atraumatic and hearing grossly normal bilaterally HEAD & SCALP: normocephalic and atraumatic Resp: COMMON NORMALS: normal respiratory effort, No retractions, No use of accessory muscles and clear to auscultation bilaterally AUSCULTATION: clear to auscultation bilaterally Cardio: COMMON NORMALS: regular rate, regular rhythm and No murmurs present (Cardio) RATE: regular rate RHYTHM: regular rhythm GI: COMMON NORMALS: Soft to palpation and No hepatosplenomegaly present AUSCULTATION: Yes normoactive bowel sounds PALPATION: Yes Soft to palpation, No Tenderness to palpation present (GI), No Guarding due to palpation present (GI) and Yes No hepatosplenomegaly present Extremity: COMMON NORMALS: normal to inspection, capillary refill normal, no clubbing, cyanosis or edema, no calf tenderness and no pedal edema Neuro: SENSORIUM/ORIENTATION: Yes oriented to person, Yes oriented to place and Yes oriented to time Skin: COMMON NORMALS: no rashes or lesions noted GENERAL SKIN EXAM: no rashes or lesions noted Course Vital Signs: Vital signs: Vital Signs Temperature 98.3 F 05/22/24 08:06 Pulse Rate 98 05/22/24 09:47 Respiratory Rate 20 H 05/22/24 08:06 Blood Pressure 155/39 05/22/24 09:47 Pulse Oximetry 98 05/22/24 09:47 Oxygen Delivery Me thod Room Air 05/22/24 08:06 MDM - Back Pain/Injury Medical Decision Making Left posterior seventh rib fracture. Nondisplaced no pneumothorax. Discharge patient home with hydrocodone to use for pain he was previously given tizanidine at the doctor's office he can continue to use that as needed discussed usual course of healing of rib fracture avoid exertional activities heavy lifting. He has noted that when he tries to get up out of a chair it is very painful encouraged him to use his arms to assist himself and getting out of the chair which should help take some of the tension off of his back and rib and reduce his pain. Follow-up with primary care as needed Labs Radiology Impressions Lumbar Spine X-Ray 05/22/24 08:00 IMPRESSION: 1. Mild degenerative change. No fracture or malalignment. Ribs X-Ray 05/22/24 08:44 IMPRESSION: 1. Nondisplaced posterior LEFT seventh rib fracture. No pneumothorax. All radiology interpretation(s) finalized by discharge Discharge Plan Discharge Patient Disposition: Home Clinical Impression: Closed rib fracture Condition: Stable Prescriptions: New hydrocodone-acetaminophen 5-325 mg tablet 1 tab PO Q6H PRN (Reason: pain) Qty: 25 0RF Discontinued tramadol 50 mg tablet 50 mg PO Q8H PRN (Reason: pain) Qty: 20 0RF No Action aspirin 81 mg tablet,delayed release (DR/EC) 81 mg PO DAILY tamoxifen 20 mg tablet 20 mg PO DAILY Qty: 90 3RF amlodipine 5 mg tablet 5 mg PO DAILY tizanidine 4 mg tablet 4 mg PO TID Discharge Orders: Discharge ED (Routine); Ordered 05/22/24 Ordered By: Gume Moss Referrals: Juancarlos Arizmendi DO [Primary Care Provider] - Patient Instructions: Opioid Safety, Pain Management Activity Restrictions/Additional Instructions: Thank you for choosing [facility] for your healthcare needs today. It is very important that you follow up as instructed or that you return to the Emergency Department should you have concerns or if your condition changes or worsens in any way. You are seen in the emergency room for back pain after a fall. You have a posterior seventh rib fracture on the left side which is consistent with your exam findings. There is no injury to the underlying lung. Rather than the tramadol we will give you hydrocodone to use as needed you can use ice on the area as needed avoid exertional activities or heavy lifting. Coding Level of Care Code ED Paperboard Box Maker for Alfonso Holder
[2024-05-22] MEDS: ketorolac 30 mg/mL INJ IVP (08:52)
[2024-05-22] MEDS: HYDROcodone-acetaminophen 5-325 mg Tablet 1 TAB PO (08:53)
[2024-05-22 09:47] VITALS: BP 155/39; PULSE 98; O2SAT 98
== END 2024-05-22 09:54 | disposition home or self-care (01) ==
PROVIDERS: Emergency Provider Family Medicine; PCP Internal Medicine
DX: S22.32XA Fracture of one rib, left side, initial encounter for closed fracture (principal); Z79.82 Long term (current) use of aspirin; Z85.3 Personal history of malignant neoplasm of breast; I10 Essential (primary) hypertension; W01.0XXA Fall on same level from slipping, tripping and stumbling without subsequent striking against object, initial encounter
CPT/HCPCS: 71101; 72100; 96374; 99284; J1885

== ENCOUNTER 2024-08-06 08:20 | Outpatient (CLI) | payer MEDICARE, OTHER, SELFPAY ==
--- NOTE | 2024-08-06 08:40 | MM_ITS ---
WS: [id number] DIAGNOSTIC RIGHT DIGITAL TOMOSYNTHESIS MAMMOGRAPHY WITH CAD. HISTORY: hx of breast cancer of L breast; gets yearly R mammo COMPARISON: 05/10/2023, 04/25/2022, 04/12/2021 Technique: CC, MLO and ML views. Breast composition: The breasts are almost entirely fatty. Benign lymph nodes upper outer quadrant RIGHT breast. No suspicious grouping of calcification or mass. MM/MM diag RT tomosynthesis [id number] IMPRESSION: BI-RADS: 2 - Benign. FOLLOW UP: 1 Year Follow-up
== END 2024-08-06 08:21 | disposition home or self-care (01) ==
LOC: RAD 08:21
PROVIDERS: PCP Family Medicine; Visit Provider Family Medicine
DX: C50.022 Malignant neoplasm of nipple and areola, left male breast (principal); R92.311 Mammographic fatty tissue density, right breast; R59.0 Localized enlarged lymph nodes
CPT/HCPCS: 77061; G0279